=== PATIENT | male | born 1975 | race Caucasian/White ===

== ENCOUNTER 2018-05-23 19:39 | Emergency (ER) | payer MEDICAID ==
[~2018-05-23] VITALS: Ht 182.9 cm; Wt 99.8 kg
[2018-05-23 20:14] VITALS: BP 127/93
[2018-05-23] MEDS ORDERED: FUROSEMIDE 40 MG/4 ML VIAL IVP SCH (21:00)
[2018-05-23 21:31] LABS: BASOPHILS # (AUTO) 0.1 K/uL (0.00-0.22); BASOPHILS % (AUTO) 0.7 % (0.0-2.0); EOSINOPHILS # (AUTO) 0.1 K/uL (0-0.4); EOSINOPHILS % (AUTO) 1.1 % (0.0-4.0); HEMATOCRIT 38.6 % (36-52); HEMOGLOBIN 12.8 g/dL (12.0-18.0); LYMPHOCYTES # (AUTO) 1.9 K/uL (2.0-11.5); LYMPHOCYTES % (AUTO) 19.6 % (20.5-51.1); MEAN CORPUSCULAR HEMOGLOBIN 34 pg (27-31); MEAN CORPUSCULAR HGB CONC 33 g/dL (33-37); MEAN CORPUSCULAR VOLUME 101.6 fL (80-94); MONOCYTES # (AUTO) 0.5 K/uL (0.8-1.0); MONOCYTES % (AUTO) 4.7 % (1.7-9.3); NEUTROPHILS % (AUTO) 73.9 % (42.2-75.2); PLATELET COUNT (AUTO) 204 K/uL (140-450); RED CELL DISTRIBUTION WIDTH 15.6 % (11.6-13.7); WHITE BLOOD COUNT (AUTO) 9.5 K/uL (4.8-10.8)
[2018-05-23 21:43] LABS: CARBON DIOXIDE 32.4 mmol/L (21-32); CREATININE 1.3 mg/dL (0.7-1.3); POTASSIUM 4.4 mmol/L (3.5-5.1)
[2018-05-23 21:49] LABS: ALBUMIN 3.6 g/dL (3.4-5.0); TOTAL BILIRUBIN 0.4 mg/dL (0.0-1.0)
[2018-05-23 23:05] VITALS: BP 121/76
== END 2018-05-23 22:53 | disposition home or self-care (01) ==
LOC: MED 19:39
DX: R60.9 Edema, unspecified (principal); E11.9 Type 2 diabetes mellitus without complications; I10 Essential (primary) hypertension; E78.5 Hyperlipidemia, unspecified
CPT/HCPCS: 36415; 71045; 80053; 83880; 84484; 85025; 93005; 96374; 99284; J1940

== ENCOUNTER 2021-08-25 19:38 | Emergency (ER) | payer MEDICAID ==
[~2021-08-25] VITALS: Ht 180.3 cm; Wt 104.3 kg
[2021-08-25 19:58] VITALS: BP 157/102
--- NOTE | 2021-08-25 20:24 | NUR ---
Blood for labwork drawn from right arm per [facility]. Patient tolerated well.
[2021-08-25 20:33] LABS: HEMATOCRIT 35.4 % (36-52); HEMOGLOBIN 11.9 g/dL (12.0-18.0); MEAN CORPUSCULAR HEMOGLOBIN 32 pg (27-31); MEAN CORPUSCULAR HGB CONC 34 g/dL (33-37); MEAN CORPUSCULAR VOLUME 95.7 fL (80-94); PLATELET COUNT (AUTO) 212 K/uL (140-450); RED CELL DISTRIBUTION WIDTH 15.4 % (11.6-13.7); WHITE BLOOD COUNT (AUTO) 21.8 K/uL (4.8-10.8)
--- NOTE | 2021-08-25 20:51 | NUR ---
Patient ambulated to bed 12.
--- NOTE | 2021-08-25 20:58 | NUR ---
X-ray at bedside.
[2021-08-25 20:59] LABS: LYMPHOCYTES % (MANUAL) 5 % (20-46)
--- NOTE | 2021-08-25 21:00 | NUR ---
IN BED 12 WITH C/O TESTICULAR PAIN X 4 DAYS. ALSO C/O SWELLING AND BACK PAIN. PMHx: HTN, DM, HTN, HLD, Stroke, Thyroid
--- NOTE | 2021-08-25 21:01 | NUR ---
Urine sample collected and sent to lab.
[2021-08-25 21:03] LABS: ALBUMIN 3.9 g/dL (3.4-5.0); ANION GAP 13.4 (8-16); CREATININE 1.4 mg/dL (0.6-1.3); POTASSIUM 3.4 mmol/L (3.5-5.1); TOTAL BILIRUBIN 0.7 mg/dL (0.0-1.0)
--- NOTE | 2021-08-25 21:37 | NUR ---
US at bedside.
[2021-08-25 21:57] LABS: APPEARANCE,URINE CLEAR (CLEAR); BILIRUBIN,URINE NEGATIVE (NEGATIVE); BLOOD, URINE TRACE (NEGATIVE); COLOR,URINE AMBER (YELLOW); NITRITE, URINE NEGATIVE (NEGATIVE); PH,URINE 6.5 (5.0-9.0); UGLUCOSE NEGATIVE (NEGATIVE)
[2021-08-25 22:07] LABS: RBC,URINE 0-5 /HPF (0-5)
[2021-08-25 22:08] LABS: LEUKOCYTE ESTERASE ,URINE TRACE (NEGATIVE)
[2021-08-25] MEDS ORDERED: MORPHINE SULFATE 4 MG/ML SYR IVP ONE (22:55)
[2021-08-25] MEDS ORDERED: NACL 0.9% 2,000 ML IV ONE (22:55)
[2021-08-25] MEDS ORDERED: CEFEPIME 1,000 MG in DEXTROSE 5% 50 ML IV ONE (22:55)
[2021-08-25] MEDS ORDERED: VANCOMYCIN 1,000 MG in DEXTROSE 5% 250 ML IV ONE (22:55)
[2021-08-25] MEDS ORDERED: ONDANSETRON 4 MG/2 ML VIAL IVP ONE (22:55)
[2021-08-25] MEDS ORDERED: CEFEPIME 1,000 MG VIAL ONE (23:30)
[2021-08-25] MEDS ORDERED: VANCOMYCIN 1,000 MG VIAL ONE (23:31)
--- NOTE | 2021-08-26 00:53 | NUR ---
REPORT CALLED TO RANULFO AT [facility]
[2021-08-26 01:30] VITALS: BP 138/74
--- NOTE | 2021-08-26 02:00 | NUR ---
[facility] HERE. PT TRANSFERED. CHART COPIED AND SENT
== END 2021-08-26 01:30 | disposition short-term general hospital (02) ==
LOC: MED 19:38
DX: A41.9 Sepsis, unspecified organism (principal); Z20.822 Contact with and (suspected) exposure to COVID-19; N45.3 Epididymo-orchitis; N39.0 Urinary tract infection, site not specified; E11.9 Type 2 diabetes mellitus without complications; I10 Essential (primary) hypertension; E07.9 Disorder of thyroid, unspecified
CPT/HCPCS: 36415; 71045; 74177; 76870; 80053; 81001; 83605; 83880; 84484; 85025; 87040; 87086; 87426; 93005; 96365; 96368; 96375; 99285; J0692; J2270; J2405; J3370; J7030; Q0092; Q9967

== ENCOUNTER 2022-07-20 19:07 | Emergency (ER) | payer MEDICAID ==
[~2022-07-20] VITALS: Ht 180.3 cm; Wt 106.6 kg
[2022-07-20 19:37] VITALS: BP 146/82
--- NOTE | 2022-07-20 19:41 | NUR ---
TO LOBBY FOLLOWING TRIAGE
--- NOTE | 2022-07-20 21:23 | NUR ---
PT TO 3
--- NOTE | 2022-07-20 21:58 | NUR ---
Dr. Min examining patient.
[2022-07-20 22:14] LABS: BASOPHILS # (AUTO) 0.1 K/uL (0.00-0.22); BASOPHILS % (AUTO) 0.9 % (0.0-2.0); EOSINOPHILS # (AUTO) 0.2 K/uL (0-0.4); EOSINOPHILS % (AUTO) 2.6 % (0.0-4.0); HEMATOCRIT 33.9 % (36-52); HEMOGLOBIN 11.8 g/dL (12.0-18.0); LYMPHOCYTES # (AUTO) 2.7 K/uL (2.0-11.5); LYMPHOCYTES % (AUTO) 33.4 % (20.5-51.1); MEAN CORPUSCULAR HEMOGLOBIN 34 pg (27-31); MEAN CORPUSCULAR HGB CONC 35 g/dL (33-37); MONOCYTES # (AUTO) 0.3 K/uL (0.8-1.0); MONOCYTES % (AUTO) 3.6 % (1.7-9.3); NEUTROPHILS # (AUTO) 4.9 K/uL (1.8-7.7); NEUTROPHILS % (AUTO) 59.5 % (42.2-75.2); PLATELET COUNT (AUTO) 207 K/uL (140-450); RED CELL DISTRIBUTION WIDTH 15.4 % (11.6-13.7); WHITE BLOOD COUNT (AUTO) 8.2 K/uL (4.8-10.8)
[2022-07-20 22:43] LABS: ALBUMIN 3.6 g/dL (3.4-5.0); CARBON DIOXIDE 31.6 mmol/L (21-32); CREATININE 1.5 mg/dL (0.6-1.3); POTASSIUM 3.6 mmol/L (3.5-5.1); THYROID STIMULATING HORMONE 49.2 uIU/mL (0.34-3.74); TOTAL BILIRUBIN 0.2 mg/dL (0.0-1.0)
--- NOTE | 2022-07-20 22:43 | NUR ---
Dr. Camejo examining patient.
--- NOTE | 2022-07-20 22:57 | NUR ---
Patient taken to CT scan.
[2022-07-20] MEDS ORDERED: AMOX875T3 PO (23:25)
[2022-07-20] MEDS ORDERED: OFLO10SO16 RIGHT EAR (23:25)
[2022-07-20] MEDS ORDERED: LEVO0.114 PO (23:25)
[2022-07-20] MEDS ORDERED: IBUP-2213 PO (23:25)
[2022-07-20 23:40] VITALS: BP 133/82
--- NOTE | 2022-07-20 23:40 | NUR ---
Patient discharged with v/s stable. Written and verbal after care instructions given and explained. Patient alert, oriented and verbalized understanding of instructions. Ambulatory with steady gait. All questions addressed prior to discharge. ID band removed. Patient advised to follow up with PMD. Rx of Amoxicillin, Ibuprofen, Synthroid and Ofloxacin given. Patient educated on indication of medication including possible reaction and side effects. Opportunity to ask questions provided and answered.
== END 2022-07-20 23:40 | disposition home or self-care (01) ==
LOC: MED 19:07
DX: H66.91 Otitis media, unspecified, right ear (principal); H72.91 Unspecified perforation of tympanic membrane, right ear; E03.9 Hypothyroidism, unspecified; E11.9 Type 2 diabetes mellitus without complications; I10 Essential (primary) hypertension; Z79.899 Other long term (current) drug therapy; Z79.2 Long term (current) use of antibiotics
CPT/HCPCS: 36415; 70450; 80053; 84443; 85025; 99284

== ENCOUNTER 2022-12-05 13:15 | Emergency (ER) | payer MEDICAID ==
[~2022-12-05] VITALS: Ht 180.3 cm; Wt 106.1 kg
[~2022-12-05 13:15] MED LIST: AMOX875T3 PO; IBUP-2213 PO; LEVO0.114 PO; OFLO10SO16 RIGHT EAR
[2022-12-05 13:24] VITALS: BP 138/89; PULSE 88; RESP 20; TEMP 98; O2SAT 100
[2022-12-05] MEDS ORDERED: CIPR10DR4 LEFT EYE (13:59)
[2022-12-05] MEDS ORDERED: TETRACAINE HCL/PF 0.5% OPTH 4 ML BTL OP ONE (14:10)
[2022-12-05] MEDS ORDERED: CIPROFLOXACIN 0.3% OP 2.5 ML BTL OP ONE (14:25)
[2022-12-05] MEDS ORDERED: CIPROFLOXACIN 0.3% OP 2.5 ML BTL RIGHT EYE SCH (14:30)
== END 2022-12-05 15:00 | disposition home or self-care (01) ==
LOC: MED 13:15
DX: H16.002 Unspecified corneal ulcer, left eye (principal); E11.9 Type 2 diabetes mellitus without complications; I10 Essential (primary) hypertension; Z79.899 Other long term (current) drug therapy; Z79.4 Long term (current) use of insulin
CPT/HCPCS: 99283

== ENCOUNTER 2023-05-25 13:35 | Emergency (ER) | payer MEDICAID ==
[~2023-05-25] VITALS: Ht 180.3 cm; Wt 104.3 kg
[2023-05-25 13:52] VITALS: BP 157/104; PULSE 83; RESP 16; TEMP 97.8; O2SAT 96
[2023-05-25] MEDS ORDERED: ACETAMINOPHEN EXTRA STRENGTH 500 MG TAB PO ONE (14:50)
[2023-05-25] MEDS ORDERED: HYDROcodone/APAP 5/325 MG 1 TAB TAB PO ONE (14:55)
[2023-05-25] MEDS ORDERED: ACET-8905 PO (15:04)
[2023-05-25] MEDS ORDERED: CEPH-588 PO (15:04)
== END 2023-05-25 15:26 | disposition home or self-care (01) ==
LOC: MED 13:35
DX: L03.113 Cellulitis of right upper limb (principal); I11.9 Hypertensive heart disease without heart failure; E11.9 Type 2 diabetes mellitus without complications; Z79.4 Long term (current) use of insulin; Z79.899 Other long term (current) drug therapy
CPT/HCPCS: 73110; 73130; 99284